=== PATIENT | female | born 1950 | race Caucasian/White ===

== ENCOUNTER 2023-02-13 08:34 | Day surgery (SDC) | payer MEDICARE, OTHER ==
[2023-02-13] MEDS: Polymyxin B/Trimethoprim 10 ML Bottle EYELF SCH ×4 (09:35→11:18)
[2023-02-13] MEDS: Brimonidine 0.2% Ophth Soln 5 ML Bottle EYELF SCH ×4 (09:40→11:18)
[2023-02-13] MEDS: Phenylephrine 2.5% Ophth Soln 2 ML Bot EYELF SCH ×5 (09:46→10:45)
[2023-02-13] MEDS: Tropicamide 1% Ophth Soln 15 ML Bottle EYELF SCH ×4 (09:49→10:29)
[2023-02-13] MEDS: Tetracaine HCl/PF 0.5% 4 ML Bottle EYEBOTH SCH ×5 (10:36→11:05)
[2023-02-13] MEDS: Cefuroxime 10 MG/ML SYRINGE EYELF SCH ×2 (10:45→11:17)
[2023-02-13] MEDS: Lidocaine 1% PF 2 ML SDV INJECT SCH ×2 (10:45→11:04)
[2023-02-13] MEDS: Pilocarpine 4% Ophth Soln 15 ML Bot EYELF SCH ×2 (10:46→11:18)
[2023-02-13 11:33] VITALS: BP 123/54; PULSE 63
== END 2023-02-13 11:28 | disposition home or self-care (01) ==
LOC: JD.SDS 08:34
PROVIDERS: ATTEND Ophthalmology
DX: E11.36 Type 2 diabetes mellitus with diabetic cataract (principal); H25.813 Combined forms of age-related cataract, bilateral; H35.363 Drusen (degenerative) of macula, bilateral; H35.3131 Nonexudative age-related macular degeneration, bilateral, early dry stage; H16.103 Unspecified superficial keratitis, bilateral; H16.223 Keratoconjunctivitis sicca, not specified as Sjogren's, bilateral; H02.834 Dermatochalasis of left upper eyelid; H02.831 Dermatochalasis of right upper eyelid; I10 Essential (primary) hypertension; D64.9 Anemia, unspecified; G47.33 Obstructive sleep apnea (adult) (pediatric); E03.9 Hypothyroidism, unspecified; K21.9 Gastro-esophageal reflux disease without esophagitis; M19.90 Unspecified osteoarthritis, unspecified site; I48.91 Unspecified atrial fibrillation; J40 Bronchitis, not specified as acute or chronic; Z98.890 Other specified postprocedural states; Z79.899 Other long term (current) drug therapy; Z79.890 Hormone replacement therapy; Z88.5 Allergy status to narcotic agent; Z88.8 Allergy status to other drugs, medicaments and biological substances; Z79.82 Long term (current) use of aspirin
CPT/HCPCS: 66984; A9270; J0697; J3490; V2788-GY